=== PATIENT | female | born 1975 | race Two or more races ===

== ENCOUNTER 2021-09-25 16:29 | Emergency (ER) | payer MEDICAID, OTHER ==
[~2021-09-25] VITALS: Ht 165.1 cm; Wt 65.8 kg
[2021-09-25 18:38] VITALS: BP 131/89
[2021-09-25] MEDS ORDERED: TETANUS-DIPTH-ACEL PERTUSSIS 0.5ML SYR Tdap IM ONE (19:45)
[2021-09-25] MEDS ORDERED: AMOXICILLIN/CLAVUL 875 MG TAB PO ONE (21:15)
[2021-09-25] MEDS ORDERED: IBUP600T28 PO (21:16)
[2021-09-25] MEDS ORDERED: AMOX-277 PO (21:16)
[2021-09-25] MEDS ORDERED: AMOXICILLIN/CLAVUL 875 MG TAB ONE (21:20)
== END 2021-09-25 21:24 | disposition home or self-care (01) ==
LOC: ER 16:29
DX: S51.812A Laceration without foreign body of left forearm, initial encounter (principal); S51.852A Open bite of left forearm, initial encounter; W54.0XXA Bitten by dog, initial encounter; Y93.89 Activity, other specified; Y92.89 Other specified places as the place of occurrence of the external cause; Y99.8 Other external cause status
CPT/HCPCS: 12002; 73090; 90471; 90715; 99283; J2001

== ENCOUNTER 2021-10-13 14:36 | Emergency (ER) | payer MEDICAID ==
[~2021-10-13] VITALS: Ht 165.1 cm; Wt 70.3 kg
[2021-10-13 18:55] VITALS: BP 100/76
== END 2021-10-13 18:57 | disposition home or self-care (01) ==
LOC: ER 14:36
DX: S41.152D Open bite of left upper arm, subsequent encounter (principal); W54.0XXD Bitten by dog, subsequent encounter